=== PATIENT | male | born 1955 | race Caucasian/White ===

== ENCOUNTER → 2024-04-11 12:33 | Outpatient (REF) | payer OTHER, SELFPAY | LOC: RAD 12:33 | PROVIDERS: ATTENDING PHYSICIAN Family Medicine | DX: R76.12 Nonspecific reaction to cell mediated immunity measurement of gamma interferon antigen response without active tuberculosis (principal) | CPT/HCPCS: 71046 ==

== ENCOUNTER → 2024-06-05 07:00 | Outpatient (REF) | payer OTHER, SELFPAY | LOC: RAD 07:00 | PROVIDERS: ATTENDING PHYSICIAN Family Medicine | DX: R10.32 Left lower quadrant pain (principal) | CPT/HCPCS: 76882 ==

== ENCOUNTER 2024-08-15 07:58 | Day surgery (SDC) | payer OTHER, SELFPAY ==
[2024-07-31 12:44] VITALS: BMI 28.5
[2024-07-31 13:05] LABS: % Basophils 0.4 % (0-2); % Eosinophils 1.2 % (0-6); % Immature Granulocytes 0.3 % (0-0.5); % Lymphocytes 16.1 % (20.5-51.1); % Monocytes 6.5 % (1.7-9.3); % Neutrophils 75.5 % (42.2-75.2); Absolute Eosinophils 0.1 10^3/uL (0-0.7); Absolute Lymphocytes 1.2 10^3/uL (1.2-3.4); Absolute Monocytes 0.5 10^3/uL (0.1-0.6); Absolute Neutrophils 5.5 10^3/uL (1.4-6.5); Hematocrit 43.8 % (39.0-52.0); Hemoglobin 14.6 g/dL (13.0-18.0); Mean Corp Hgb Conc. 33.3 g/dL (33.0-37.0); Mean Corpuscular Hgb 30.2 pg (27.0-31.0); Mean Corpuscular Volume 90.7 fL (80.0-94.0); Mean Platelet Volume 9.4 fL (7.4-10.4); Nucleated Red Blood Cells % 0 % (-); Platelet Count 205 10^3/uL (130-400); Red Blood Cell Count 4.83 10^6/uL (4.70-6.10); White Blood Cell Count 7.3 10^3/uL (4.8-10.8)
[2024-07-31 13:12] LABS: INR 1.01; PT 13.7 Sec (11.4-14.6)
[2024-07-31 13:16] LABS: ALT (SGPT) 18 U/L (0-50); AST (SGOT) 22 U/L (17-59); Albumin 4.2 g/dl (3.5-5.0); Alkaline Phosphatase 98 U/L (38-126); Blood Urea Nitrogen 11 mg/dl (9-20); Calcium 9.6 mg/dl (8.4-10.2); Carbon Dioxide 30 mmol/L (22-30); Chloride 101 mmol/L (98-107); Estimated Creatinine Clearance 54 ml/min; Glucose 114 mg/dl (70-99); Potassium 4.2 mmol/L (3.5-5.1); Sodium 136 mmol/L (135-145); Total Bilirubin 2.1 mg/dl (0.2-1.3); Total Protein 7.1 g/dl (6.3-8.2); eGFR > 60.00
--- NOTE | 2024-08-01 10:46 | W.PN.UPDATE ---
Update Note
Progress Note Update
CT chest 07/31/24:--Dr Vallecillo PCP made aware
No evidence for left atrial thrombus.
Scattered right upper lobe groundglass nodules measuring up to 4.2 cm, possibly of infectious/inflammatory etiology. Recommend follow-up CT chest in 3-6 months. The [facility] Pulmonary Nodule Advisory Board will be notified.
--- NOTE | 2024-08-14 10:37 | OID.L.PAT ---
Pulmonary Nodule Pat Letter
- -
08/14/24
BALDEV HAYS
[address]
[place], [place] [address]
Dear BALDEV,
A pulmonary nodule was seen on an imaging study done by [facility]. This was reviewed by the [facility] Pulmonary Nodule Advisory Board and the following recommendation was made:
Recommendation: Follow up CT Chest in 3 months and follow up with a Glass Lined Tank Repairer
If you have any questions, please do not hesitate to contact your primary care physician. If you are in need of a Physician, you can go to [email or web address] and click on 'Find a Provider'. Type 'Family Medicine' in the search.
Oncology Nurse Navigator
[facility]
[phone]
--- NOTE | 2024-08-14 10:38 | OID.L.REC ---
Pulmonary Nodule Follow Up
- Recommendation
08/14/24
Pulmonary Nodule Review Recommendations
Your patient, BALDEV HAYS, had a pulmonary nodule seen on an imaging study done on 07/31/24 in the [facility] Radiology Department.
This was reviewed by the [facility] Pulmonary Nodule Advisory Board and the following recommendation was made:
Recommendation: Follow up CT Chest in 3 months and follow up with a Electronic Device Monitor
If you have any questions please do not hesitate to contact us.
Sincerely,
Oncology Nurse Navigator
[facility]
[phone]
[2024-08-15] VITALS (12 sets, daily range): BP systolic 116–151; BP diastolic 80–131
[2024-08-15 10:52] LABS: ACT-LR - POC 284 Seconds (116-155)
[2024-08-15 11:14] LABS: ACT-LR - POC 337 Seconds (116-155)
[2024-08-15 11:36] LABS: ACT-LR - POC 294 Seconds (116-155)
[2024-08-15] MEDS: ANESTHETIC LOZENGE 1 LOZENGE PO (12:50)
[2024-08-15] MEDS: MAALOX 30 ML PO (12:50)
[2024-08-15] MEDS: TYLENOL 650 MG PO (12:50)
--- NOTE | 2024-08-15 13:10 | ITS.CL.ABL ---
Proof Technician - Ablation
Ablation
Procedure Report:
ELECTROPHYSIOLOGIC STUDY AND POSSIBLE ABLATION
DATE: August 15, 2024
Primary Care Provider: Dr. Henri Vallecillo
Primary Radio Operator: Dr Lazaro Saha
INDICATION:
Symptomatic Atrial Fibrillation and atrial flutter, paroxysmal
HISTORY: See H and P.
Symptomatic AF, poorly controlled with attempted medical therapy
HAS-BLED:
Age
NSAIDS
CHADSVASc: 2
HTN
Age
PRESENTING RHYTHM: Atrial flutter
HISTORY: See H and P.
Symptomatic AF, poorly controlled with attempted medical therapy.
ANTIARRHYTHMIC DRUG: Sotalol was discontinued 3 days ago
ANTICOAGULATION: Apixaban
'TIME-OUT': called and confirmed.
SEDATION/ANESTHESIA: provided via the anesthesia department using general anesthesia.
PROCEDURE:
Ultrasound Guidance with real-time visualization of needle insertion and vessel patency performed by me for femoral venous Vascular Access.
Under real-time US guidance, the needle was advanced with negative pressure into the vein. The needle was seen entering the vessel lumen with a good return of dark red flow, the syringe was removed, non-pulsatile, dark red blood low was noted and
the wire was passed without difficulty, then the needle was removed. US confirmed the wire was in the vein, not going into an artery,
Images were taken and saved for the patient's permanent record. Imaging findings typical femoral venous anatomy. Direct visualization of needle puncture into the femoral vein was observed and recorded.
A decapolar CS catheter was placed within the CS for mapping and pacing.
The intracardiac ultrasound catheter was positioned in the RA for continuous intracardiac ultrasound imaging.
Entrainment from the proximal coronary sinus, distal coronary sinus and the CTI defines isthmus dependent right atrial flutter. Activation sequence is consistent with counterclockwise rotation.
Heparin bolus and infusion to target ACT at 300 -350 seconds was administered.
The Farapulse catheter was then positioned within the right atrium and using Farapulse ablation catheter in the flower configuration and delivering pulsed electric field energy, 3 applications were given at the CTI from the inferior vena cava to the
tricuspid valve annulus. During the second application atrial flutter terminated to sinus rhythm. At the end of ablation delivery mapping with the high density multipolar grid catheter as well as differential pacing confirmed bidirectional block
at the CTI.
Transseptal puncture was performed. This entailed advancing a sheath with dilator into the superior vena cava and withdrawing both (monitoring intracardiac ultrasound, fluoroscopy and tip pressure) with the tip oriented toward the atrial septum.
The fossa ovalis was engaged (indicated by sudden displacement of the sheath tip as well as tenting of the fossa seen on intracardiac ultrasound).
The Tilson transseptal system was used alaong with the [employer] RF transseptal system. Left atrial catheter position was confirmed by echocardiographic imaging and fluoroscopy followed by RF delivery using the [employer] system resulting in successful
LA access with pressure monitoring demonstrating LA pressure waveforms (LA mean pressure 9 mm Hg). The sheath was advanced over the dilator and positioned in the left atrium.
The [employer] Grid multipolar mapping catheter was initially positioned through the transseptal sheath for high density mapping.
Geometry and voltage mapping was performed using the Esc[employer]edo multipolar grid catheter. Ensite-X was utilized for three-dimensional electroanatomical mapping.
A 3-D map was created using Ensite-X in Voxel mode. A 3-D reconstructed CT image was compared to the 3-D Nave[employer] map to assist in anatomic evaluation, mapping and ablation.
The Tilson PFA catheter and system was used for cardiac ablation. Catheter positioning was guided and confirmed using both I.C.E. and fluoroscopy.
PV isolation approach was used to electrically isolate each PV ostia (LSPV, LIPV, RSPV, RIPV).
Additional energy applications/additional ablation set was required to accomplish wide area circumferential ablation around each of the pulmonary vein sets and additionally ablation to accomplish LA posterior wall ablation.
Remapping with the Escobedo multipolar grid catheter found that all PVPs were eliminated at each vein demonstrating entrance block. Also pacing from the multipolar mapping catheter around the the circumference of the ostia was performed at 10 ma and
2.0 msec output to assess for exit block. This demonstrated electrical isolation at each of the pulmonary vein ostia (LSPV, LIPV, RSPV, RIPV). There is also entrance and exit block at the LA posterior wall.
Programmed electrostimulation which included burst atrial pacing as well as a delivery of decremental atrial extrastimuli down to atrial ERP failed to induce any sustained arrhythmias.
I.C.E. :
Pre-Ablation Post-Ablation
LVEF: 50 % 50 %
WMA: none none
Pericardial effusion: none none
COMPLICATIONS:
None
SUMMARY:
- Mapping and ablation to isolate the PVs
- Additional AF ablation set after PVI (LA posterior wall).
- Mapping and ablation of second tachycardia (SVT : RA counterclockwise flutter)
- 3-D Electroanatomical Mapping
- Intracardiac Ultrasound
- Ultrasound guidance for vascular access
RECOMMENDATIONS:
- Observe in monitored bed.
- Maintain oral anticoagulation.
- Discontinue sotalol
- Continue cardiovascular care with Dr Saha.
Copy to:
Dr. Henri Vallecillo
Dr Lazaro Saha
[2024-08-15] MEDS: ATIVAN 1 MG PO (13:16)
[2024-08-15] MEDS: PEPCID 20 MG IV (14:32)
[2024-08-15] MEDS: NSS (PRESERVATIVE FREE) 8 ML IV (14:55)
--- NOTE | 2024-08-15 15:31 | W.PN.UPDATE ---
Update Note
Progress Note Update
69 yo WM s/p PVI (same day). He denies cp, sob, voiding, he did c/o abd pain, discomfort lying flat, and sore throat which are improving, R fem site c/d/i, EKG SR. He has a chronic opioid dependence and was feeling like he was starting to w/d, he
was given his lorazepam 1mg PO with some relief. He will resume Eliquis tonight, stop sotalol and continue diltiazem. Activity restrictions reviewed. He will f/u Dr Saha in 2 mo. He is for d/c home after 445pm.
== END 2024-08-15 17:45 | disposition home or self-care (01) ==
LOC: CATH 07:58
PROVIDERS: ATTENDING PHYSICIAN Internal Medicine Cardiovascular Disease; FAMILY PHYSICIAN Family Medicine; OTHER PHYSICIAN Internal Medicine Cardiovascular Disease
DX: I48.0 Paroxysmal atrial fibrillation (principal); I48.92 Unspecified atrial flutter; F31.9 Bipolar disorder, unspecified; F41.9 Anxiety disorder, unspecified; G25.81 Restless legs syndrome; G47.33 Obstructive sleep apnea (adult) (pediatric); I10 Essential (primary) hypertension; I47.10 Supraventricular tachycardia, unspecified; I87.2 Venous insufficiency (chronic) (peripheral); Z91.81 History of falling; Z87.891 Personal history of nicotine dependence; G47.00 Insomnia, unspecified; Z79.899 Other long term (current) drug therapy; Z79.01 Long term (current) use of anticoagulants; Z87.442 Personal history of urinary calculi; Z90.79 Acquired absence of other genital organ(s); Z85.46 Personal history of malignant neoplasm of prostate; R60.0 Localized edema; Z98.890 Other specified postprocedural states
CPT/HCPCS: C1894; C1732; C1769; C1730; C1892; 75572; 76937; 80053; 83735; 85025; 85347; 85610; 86850; 86900; 86901; 93005; 93655; 93656; 93657; C1733; C1766; Q9967

== ENCOUNTER → 2024-08-23 13:20 | Outpatient (REF) | payer OTHER, SELFPAY | LOC: DHSLP 13:20 | PROVIDERS: ATTENDING PHYSICIAN Internal Medicine Critical Care Medicine; FAMILY PHYSICIAN Family Medicine | DX: G47.30 Sleep apnea, unspecified (principal); R06.83 Snoring | CPT/HCPCS: 95800 ==

== ENCOUNTER → 2024-11-25 09:28 | Outpatient (REF) | payer OTHER, SELFPAY | LOC: RAD 09:28 | PROVIDERS: ATTENDING PHYSICIAN Internal Medicine Critical Care Medicine; FAMILY PHYSICIAN Family Medicine | DX: R91.1 Solitary pulmonary nodule (principal) | CPT/HCPCS: 71250 ==